=== PATIENT | male | born 1940 | race Caucasian/White ===

== ENCOUNTER 2020-11-10 17:13 | Observation (INO) ==
[2020-11-10 17:21] VITALS: TEMP 98.1
[2020-11-10 21:12] LABS: Basophils # 0.1 K/mcL (0.0-0.2); Eosinophils # 0.4 K/mcL (0.0-0.6); Eosinophils % 5.5 %; Hematocrit 39.4 % (37.5-50.1); Hemoglobin 13.7 g/dL (12.9-16.9); Immature Granulocytes % 0.4 % (0-4); Lymphocytes % 27.7 %; Mean Corpuscular HGB Conc 34.8 g/dL (31.6-35.5); Mean Corpuscular Volume 92.1 fL (83.0-100.0); Mean Platelet Volume 10.7 fL (9.4-12.4); Monocytes # 0.8 K/mcL (0.0-1.3); Neutrophils # 3.9 K/mcL (1.6-8.9); Platelet Count 188 K/mcL (140-400); Red Blood Count 4.28 M/mcL (4.19-5.50); Red Cell Distribution Width 12.6 % (11.5-14.5); Segmented Neutrophils % 54.4 %; White Blood Count 7.2 K/mcL (4.3-11.1)
[2020-11-10 21:19] LABS: INR 1.2; Prothrombin Time 13.4 Seconds (9.4-12.1)
[2020-11-10 21:22] LABS: Activated Partial Thrombo Time 31.4 Seconds (26.0-36.0)
[2020-11-10 21:24] LABS: Alanine Aminotransferase 25 Units/L (7-52); Albumin/Globulin Ratio 1.6 (1.1-2.2); Alkaline Phosphatase 73 Units/L (34-104); Aspartate Amino Transferase 20 Units/L (13-39); BUN/Creatinine Ratio 22 (6-26); Bilirubin,Total 0.7 mg/dL (0.3-1.0); Blood Urea Nitrogen 21 mg/dL (8-23); Carbon Dioxide 26 mEq/L (23-29); Chloride 103 mEq/L (98-107); Globulin 2.5 g/dL (2.4-3.5); Glucose 95 mg/dL (70-105); Osmolality,Calculated 289 (280-300); Potassium 3.8 mEq/L (3.5-5.1); Sodium 138 mEq/L (136-145); Total Protein 6.5 g/dL (6.4-8.9); eGFR For African Americans > 60 (> 60); eGFR For Non-African Americans > 60 (> 60)
[2020-11-10] MEDS ORDERED: *HR* Heparin 5,000 UNIT/ML VIAL IVP PRN ×2 (21:31)
[2020-11-10] MEDS ORDERED: *HR* Heparin 5,000 UNIT/ML VIAL IVP ONE (21:31)
[2020-11-10] MEDS ORDERED: Isovue-370 500 ML BOTTLE IVP ONE (21:32)
[2020-11-10] MEDS ORDERED: Heparin 25,000UNIT/250ML 1/2NS 25,000 UNIT/250 ML IV.SOLN IVC SCH (21:45)
[2020-11-10 21:47] LABS: Heparin anti-factor XA UFH < 0.04 IU/mL (0.30-0.70)
[2020-11-11] MEDS ORDERED: tiZANidine 4 MG TABLET PO PRN (02:10)
[2020-11-11] MEDS ORDERED: Perflutren Lipid Microsphere 1.3 ML in 0.9 % Sodium Chloride 8.7 ML IVP PRN (02:11)
[2020-11-11] MEDS ORDERED: Acetaminophen 325 MG TABLET PO PRN (02:12)
[2020-11-11] MEDS ORDERED: Ondansetron 4 MG/2 ML VIAL IVP PRN (02:12)
[2020-11-11] MEDS ORDERED: Naloxone 0.4 MG/ML INJ IVP PRN (02:12)
[2020-11-11 07:42] LABS: Basophils # 0.1 K/mcL (0.0-0.2); Eosinophils # 0.4 K/mcL (0.0-0.6); Eosinophils % 6.1 %; Hematocrit 40.1 % (37.5-50.1); Hemoglobin 13.7 g/dL (12.9-16.9); Immature Granulocytes % 0.3 % (0-4); Lymphocytes # 2.1 K/mcL (0.6-4.6); Lymphocytes % 30.4 %; Mean Corpuscular HGB Conc 34.2 g/dL (31.6-35.5); Mean Corpuscular Hemoglobin 31.1 pg (28.0-33.3); Mean Corpuscular Volume 91.1 fL (83.0-100.0); Mean Platelet Volume 11.1 fL (9.4-12.4); Monocytes # 0.7 K/mcL (0.0-1.3); Monocytes % 10.2 %; Neutrophils # 3.6 K/mcL (1.6-8.9); Platelet Count 197 K/mcL (140-400); Red Cell Distribution Width 12.5 % (11.5-14.5); White Blood Count 6.8 K/mcL (4.3-11.1)
[2020-11-11 08:05] LABS: BUN/Creatinine Ratio 22 (6-26); Blood Urea Nitrogen 19 mg/dL (8-23); Calcium 9.2 mg/dL (8.6-10.3); Carbon Dioxide 25 mEq/L (23-29); Chloride 101 mEq/L (98-107); Glucose 96 mg/dL (70-105); Magnesium 1.9 mg/dL (1.6-2.6); Osmolality,Calculated 286 (280-300); Potassium 3.9 mEq/L (3.5-5.1); Sodium 137 mEq/L (136-145); eGFR For African Americans > 60 (> 60); eGFR For Non-African Americans > 60 (> 60)
[2020-11-11] MEDS ORDERED: DilTIAZem CD (24hr) 180 MG CAP.ER.24H PO SCH (09:00)
[2020-11-11] MEDS ORDERED: METFORMIN HCL 500 MG PO SCH (09:00)
[2020-11-11] MEDS ORDERED: lisinopriL 20 MG TABLET PO SCH (09:00)
[2020-11-11] MEDS ORDERED: Finasteride 5 MG TABLET PO SCH (09:00)
[2020-11-11] MEDS ORDERED: Aspirin 81 MG TAB.CHEW PO SCH (09:00)
[2020-11-11] MEDS ORDERED: Apixaban 5 MG TABLET PO STA (09:12)
[2020-11-11] MEDS ORDERED: *HR* Rivaroxaban 15 MG TABLET PO SCH (09:30)
[2020-11-11 10:34] VITALS: BP 156/74; PULSE 72; O2SAT 95
[2020-11-11] MEDS ORDERED: cloNIDine HCL 0.1 MG TABLET PO SCH (21:00)
== END 2020-11-11 11:49 | disposition home or self-care (01) ==
LOC: EMEROOARM 17:13 → CDU 17:13 → SUATTDRO 11-11 01:45 → CDU 11-11 11:49
PROVIDERS: ADMIT Internal Medicine; ATTEND Student in an Organized Health Care Education/Training Program